=== PATIENT | female | born 1990 | race Caucasian/White ===

== ENCOUNTER 2018-11-30 17:39 | Emergency (ER) | payer BC, OTHER ==
[~2018-11-30] VITALS: Ht 160 cm; Wt 75.6 kg
[2018-11-30 18:18] VITALS: Ht 160 cm; Wt 75.6 kg
[2018-11-30] MEDS ORDERED: IBUPROFEN 600 MG TAB PO ONE (19:30)
[2018-11-30] MEDS ORDERED: IBUP-1542 PO (20:22)
--- NOTE | 2018-11-30 20:24 | ERD ---
ER Documentation Chief Complaint Chief Complaint right ankle, pain s/p missed a step today, no deformity, good pulse HPI 28-year-old female missed a step today and rolled her right ankle. She has pain on the dorsum of the right ankle joint. She might have pain in the fifth metatarsal area. She denies foot or knee tenderness or pain. She has restricted range of motion weakness. ROS All systems reviewed and are negative except as per history of present illness. Medications Home Meds Active Scripts Ibuprofen* (Motrin*) 600 Mg Tab, 600 MG PO Q6, #20 TAB Prov:JOSE D SILVEIRA MD 11/30/18 Allergies Allergies: Coded Allergies: No Known Allergy (Unverified , 11/30/18) PMhx/Soc Medical and Surgical Hx: pt denies Medical Hx, pt denies Surgical Hx Hx Alcohol Use: No Hx Substance Use: No Hx Tobacco Use: No FmHx Family History: No diabetes, No coronary disease, No other Physical Exam Vitals Vital Signs Date Temp Pulse Resp B/P (MAP) Pulse Ox O2 O2 Flow FiO2 Time Delivery Rate 11/30/18 98.2 65 18 115/73 99 Room Air 20:25 (87) 11/30/18 100.0 75 18 129/76 100 18:18 (93) Physical Exam Const: No acute distress Head: Atraumatic Eyes: Normal Conjunctiva ENT: Normal External Ears, Nose and Mouth. Neck: Full range of motion. No meningismus. Resp: Clear to auscultation bilaterally Cardio: Regular rate and rhythm, no murmurs Abd: Soft, non tender, non distended. Normal bowel sounds Skin: No petechiae or rashes Back: No midline or flank tenderness Ext: No cyanosis, or edema or tenderness primarily on the dorsum or lateral right ankle joint. No exquisite fifth metatarsal tenderness. No malleolar tenderness. No restricted range of motion, deficits, warmth, erythema or effusion. Neur: Awake and alert Psych: Normal Mood and Affect Results 24 hrs Current Medications Medications Dose Sig/Whitley Start Time Status Last (Trade) Ordered Route PRN Stop Time Admin Dose Reason Admin Ibuprofen 600 mg ONCE ONCE 11/30/18 DC 11/30/18 (Motrin) PO 19:30 11/30/18 19:43 19:31 Procedures/MDM X-ray right ankle 3V Interpreted by me: Bones: No fracture Joints: No dislocation Foreign Body: None. Impression-no acute fracture dislocation noted on right ankle x-ray. Small accessory ossicle or old fragment distal malleolar. Patient is not tender in the area of accessory ossicle or old fracture fragment. She was placed in a right ankle Ken bandage. Patient was noted to be amatory with minimal discomfort. Patient will be treated with ibuprofen, instructed for ice, elevation and primary care follow-up. Patient appears to have right ankle sprain without current signs or symptoms suggest fracture, dislocation, infection, ischemia or deficits. The patient was stable with no new complaints during the ER course. Clinically, there is no current evidence to suggest meningitis, sepsis, acute abdomen, pneumonia, stroke, acute coronary syndrome, pulmonary embolism, aortic dissection or any other emergent condition appearing to require further evaluation or hospitalization. Patient counseled regarding my diagnostic impression and care plan. Prior to discharge all questions answered. Pt agrees with treatment plan and understands strict return precautions. Pt is instructed to follow up with primary care provider within 24- 48 hours. Precautionary instructions provided including instructions to return to the ER if not improving or for any worsening or changing symptoms or concerns. Disclaimer: Inadvertent spelling and grammatical errors are likely due to EHR/dictation software use and do not reflect on the overall quality of patient care. Also, please note that the electronic time recorded on this note does not necessarily reflect the actual time of the patient encounter. Departure Diagnosis: Primary Impression: Ankle injury Encounter type: initial encounter Laterality: right Qualified Codes: S99.911A - Unspecified injury of right ankle, initial encounter Condition: Stable Patient Instructions: Treating Ankle Sprains Referrals: DOCTOR,NOT ON STAFF (PCP) Additional Instructions: No acute fracture seen on x-ray. Recommend ice and elevation at home. See primary doctor for pain next week. Return for fevers, redness, new worsening symptoms. JOSE D SILVEIRA MD Nov 30, 2018 20:24
[2018-11-30 20:25] VITALS: BP 115/73; PULSE 65; RESP 18
== END 2018-11-30 20:40 | disposition home or self-care (01) ==
LOC: FTE 17:39
DX: S99.911A Unspecified injury of right ankle, initial encounter (principal); X58.XXXA Exposure to other specified factors, initial encounter; Y92.9 Unspecified place or not applicable
CPT/HCPCS: 73610; Z7502; Z7610